=== PATIENT | female | born 1960 | race Caucasian/White ===

== ENCOUNTER 2022-11-16 14:30 | Day surgery (SDC) | payer OTHER, SELFPAY ==
[2022-11-16] VITALS (7 sets, daily range): BP systolic 93–132; BP diastolic 63–82; PULSE 70–103; RESP 12–24; TEMP 36.2–37; O2SAT 98–99; BMI 22.6
--- NOTE | 2022-11-16 15:03 | PM.HP.1 ---
History of Present Illness History of Present Illness Date Patient Seen: 11/16/22 Time Patient Seen: 15:03 Chief complaint: Screening Colonoscopy Narrative: Here for colon cancer screening. Reports a negative colonoscopy 10-,1/2 years ago. Meds Home Medications and Allergies Allergies Allergy/AdvReac Type Severity Reaction Status Date / Time No Known Drug Allergies Allergy Verified 11/16/22 14:56 Review of Systems Review of Systems ROS: Yes All systems reviewed with the patient and are negative except as otherwise documented Exam Const General: cooperative HENMT Head: normal to inspection Eyes General: appearance normal, both eyes and all related structures Neck Neck: normal visual inspection Chest Chest: normal inspection of the chest Resp Effort & Inspection: normal respiratory effort Cardio Rate: regular rate GI Inspection: normal to inspection Skin General: no rashes or lesions noted Neuro General: patient alert and patient awake Extrem General: normal to inspection and no pedal edema Psych Appearance: grossly normal Assessment & Plan Assessment & Plan narrative: 62-year-old female here for colon cancer screening. Colonoscopy is pursued today.
--- NOTE | 2022-11-16 15:04 | PM.PREOP ---
Pre-operative Note Interval Note History & Physical reviewed/Exam performed by Physician: Yes Changes to H&P: No ASA Class (for procedural sedation): I
[2022-11-16] MEDS: LACTATED RINGERS 1,000 ML 42 ML IV (15:32)
--- NOTE | 2022-11-16 15:39 | PM.OP.COLON ---
Operative Date/Time/Diagnoses Date of procedure: 11/16/22 Time of procedure: 15:39 Pre-op diagnosis: Colon cancer screening Post-op diagnosis: same Procedure & Clinicians Study performed: Colonoscopy Same procedure as scheduled: Yes Indications: Colon cancer screening Surgeon: David Og Procedure Notes SCOAP/Timeout: Done Procedure in detail: After the risks and benefits were explained, written and verbal informed consent was obtained. The patient was brought into the procedure room and placed into the left lateral decubitus position. Please see anesthesia notes for sedation details. Digital rectal examination was accomplished. The scope was introduced into the patient and advanced under direct visualization to the cecum as identified by the appendiceal orifice and ileocecal valve. The scope was slowly withdrawn to carefully examine the mucosa for any defects or lesions. Comprehensive imaging was accomplished throughout the rectum including the dentate line. The colon was decompressed, the scope was then removed from the patient who tolerated the procedure well. Pediatric colonoscope Bowel prep adequate Scope withdrawal time: 6 minutes Sedation minutes: 16 Specimen(s): none sent Complications: none Impression: The patient had a fairly tortuous sigmoid colon. No significant polyps mass lesions or inflammatory features identified throughout. The patient had evidence of grade 3 to grade 4 nonthrombosed nonbleeding hemorrhoids. Endoscopic diagnosis 1. Grade 3-4 hemorrhoids 2. Otherwise visually normal-appearing colonoscopy Post-procedure Plan for aftercare: Repeat colonoscopy 10 years; sooner should symptoms warrant an earlier exam. Disposition: PACU
== END 2022-11-16 17:05 | disposition home or self-care (01) ==
PROVIDERS: PCP Nurse Practitioner Family; Referring Provider Internal Medicine Gastroenterology; Visit Provider Internal Medicine Gastroenterology
PROC: 0DJD8ZZ Inspection of Lower Intestinal Tract, Via Natural or Artificial Opening Endoscopic (ICD-10-PCS; CPT 45378; principal; 2022-11-16 15:30)
DX: Z12.11 Encounter for screening for malignant neoplasm of colon (principal); K64.2 Third degree hemorrhoids
CPT/HCPCS: 45378; J2704

== ENCOUNTER → 2023-02-08 07:50 | Outpatient (CLI) | payer OTHER, SELFPAY ==
--- NOTE | 2023-02-08 07:50 | DI.RAD.S_ITS ---
PROCEDURE: XR CERVICAL SPINE 4V OR 5V INDICATIONS: NECK PAIN TECHNIQUE: 5 views of the cervical spine acquired. COMPARISON: None. FINDINGS: Bones: No fractures or dislocations to the C7 level. Moderate to severe foraminal stenosis at the right side C4-5 and C6-7. Mild to moderate neural foraminal narrowing at the left side of C5-6. Grade 1 anterolisthesis of C4 on C5 and C7 on T1. Diffuse facet arthrosis, most prominent at C4-5 and C5-6. Soft tissues: No prevertebral soft tissue swelling. IMPRESSION: Multilevel degenerative disc disease and facet arthrosis, resulting in moderate to severe neural foraminal stenosis on the right side of C4-5 and C6-7. Dictated by: Gerard Helms M.D. on 02/08/2023 at 8:31 Approved by: Gerard Helms M.D. on 02/08/2023 at 8:34
== END ==
PROVIDERS: PCP Nurse Practitioner Family; Referring Provider Physical Medicine & Rehabilitation; Visit Provider Physical Medicine & Rehabilitation
DX: M48.02 Spinal stenosis, cervical region (principal)
CPT/HCPCS: 72050

== ENCOUNTER → 2023-08-11 12:55 | Outpatient (CLI) | payer OTHER, SELFPAY ==
--- NOTE | 2023-08-11 12:57 | DI.MRI.S_ITS ---
BREAST MRI OF BOTH BREASTS: 08/11/2023 CLINICAL: Fibroglandular density. PROCEDURE: MR BREAST BI WO/W CON INDICATIONS: Fibroglandular density, bilateral breasts TECHNIQUE: The patient was placed prone in a dedicated breast imaging coil. Precontrast axial STIR and 3D FLASH without fat saturation sequences were obtained. Both before and after bolus injection of contrast, sequential 1-minute axial 3D FLASH with fat saturation sequences for 3 time points, with subtraction images and maximum intensity projections (MIP's) generated. Delayed sagittal FLASH images with fat saturation were also obtained. Computer-aided detection, including computer algorithm analysis of MRI image data for lesion detection and characterization, pharmacokinetic analysis, with further physician review for interpretation, was performed. COMPARISON: None. FINDINGS: Image quality: Excellent. There is minimal background parenchymal enhancement. Right breast: No suspicious enhancement or mass lesions. Left breast: There is a circumscribed 0.5 x 0.6 x 0.5 cm enhancing mass within the left breast at 3 o'clock at a middle depth, 4.6 cm from the nipple (series 6/image 72 and series 19/image 85). No other suspicious mass lesions or abnormal enhancement within the left breast. This mass is T2 hyperintense and demonstrates a small internal septation. Miscellaneous: No axillary or intramammary adenopathy. Limited visualization of the upper abdomen, heart, and lungs are unremarkable. IMPRESSION: INCOMPLETE: NEEDS ADDITIONAL IMAGING EVALUATION 1. Enhancing mass within the left breast as above. Imaging characteristics suggest the presence of a small fibroadenoma. Second-look ultrasound is recommended to further characterize this finding and exclude neoplasm. Electronically Signed By: Cheryle grier/:08/11/2023 16:47:20 letter sent: Additional Imaging Needed ACR BI-RADS Category 0: Incomplete [id number]
== END ==
PROVIDERS: PCP Nurse Practitioner Family; Referring Provider Nurse Practitioner Family; Visit Provider Nurse Practitioner Family
DX: N63.25 Unspecified lump in the left breast, overlapping quadrants (principal); R92.323 Mammographic fibroglandular density, bilateral breasts; N64.4 Mastodynia; Z12.39 Encounter for other screening for malignant neoplasm of breast; Z78.0 Asymptomatic menopausal state
CPT/HCPCS: 77049; A9579

== ENCOUNTER → 2023-08-19 14:17 | Outpatient (CLI) | payer OTHER, SELFPAY ==
--- NOTE | 2023-08-19 | DI.US.S_ITS ---
LIMITED ULTRASOUND OF LEFT BREAST: 08/19/2023 CLINICAL: Patient returns today to evaluate a focal asymmetry in the left breast. Comparison is made to exams dated: 08/11/2023 breast MRI - [facility], 06/01/2023 ultrasound, 06/01/2023 mammogram, 06/23/2022 mammogram, and 08/04/2021 mammogram - [facility]. Color flow ultrasound of the left breast 3 o'clock region was performed. North scale images of the real-time examination were reviewed. There is a benign 0.8 cm x 0.3 cm x 0.3 cm oval normal intramammary lymph node with a circumscribed margin in the left breast at 3 o'clock posterior depth 5 cm from the nipple. This oval normal intramammary lymph node displays fatty hilum. This correlates with breast MRI findings. IMPRESSION: BENIGN There is no sonographic evidence of malignancy. The 0.8 cm x 0.3 cm x 0.3 cm oval normal intramammary lymph node in the left breast is benign. Return to annual mammogram screening schedule is recommended. This exam was interpreted at Station ID: [id number]. Electronically Signed By: Jeb bolaños/fina:08/19/2023 15:58:28 letter sent: Normal Exam Ultrasound BI-RADS: 2 Benign
== END ==
LOC: US 14:17
PROVIDERS: PCP Nurse Practitioner Family; Referring Provider Nurse Practitioner Family; Visit Provider Nurse Practitioner Family
DX: R92.8 Other abnormal and inconclusive findings on diagnostic imaging of breast (principal)
CPT/HCPCS: 76642

== ENCOUNTER 2024-06-27 08:50 | Outpatient (CLI) | payer OTHER, SELFPAY ==
[2024-06-27] VITALS (10 sets, daily range): BP systolic 112–136; BP diastolic 70–97; PULSE 19–96; RESP 12–19; TEMP 35.9; O2SAT 97–100
--- NOTE | 2024-06-27 08:51 | DI.RAD.S_ITS ---
PROCEDURE: PAIN C/T INTERLAMINAR INJECT INDICATIONS: C6/7 TL HANNAH COMPARISON: None. FINDINGS: Fluoroscopic spot filming was performed to verify placement of spinal needles at the C6-C7 level(s), as labeled on the films. Appropriate location(s) of the needle tip(s) was confirmed by injection of iodinated contrast. IMPRESSION: Intraoperative guidance provided. Dictated by: Fidencio Brewer M.D. on 06/27/2024 at 23:37 Approved by: Fidencio Brewer M.D. on 06/27/2024 at 23:38
[2024-06-27] MEDS: MIDAZOLAM 2 MG/2 ML VIAL IV (10:44)
[2024-06-27] MEDS: BUPIVACAINE 0.25% (PF) VIAL 2 ML INJ (10:49)
[2024-06-27] MEDS: DEXAMETHASONE 10 MG/ML VIAL 20 MG INJ (10:49)
[2024-06-27] MEDS: iopamidoL 15 ML VIAL 3 ML INJ (10:50)
[2024-06-27] MEDS: MIDAZOLAM 2 MG/2 ML VIAL 1 MG IV (10:52)
--- NOTE | 2024-06-27 11:09 | PM.PROC.IR.1 ---
Date/Time/Diagnoses Date of procedure: 06/27/24 Time of procedure: 11:09 Pre-procedure diagnosis: 1. CERVICAL STENOSIS, 2. CERVICAL HNP WITH UPPER EXTREMITY RADICULAR FEATURES Post-procedure diagnosis: same Procedure Notes Procedure: 1. FLUORSCOPICALLY GUIDED CONTRAST CONTROLLED INTERLAMINAR EPIDURAL STEROID INJECTION - C6/7 TL HANNAH Indications: Anna is referred by MAGED Yoo for treatment of Cervical HNP with Upper Extremity Paresthesias. Physician: Iraj Romero Total Fluoroscopy time (seconds): 36 Total sedation minutes: 20 Complications: none Procedure in detail & Post-procedure care: FINDINGS Cervical Stenosis due to disc deterioration and nerve root irritation and nerve root irritation DESCRIPTION OF PROCEDURE Fluoroscopically guided, contrast-controlled C6/7 translaminar epidural steroid injection with conscious sedation. Following review of allergy and review of potential side effects and complications, including, but not necessarily limited to, infection, allergic reaction, local tissue breakdown, temporary as well as permanent nerve injury, stroke, paralysis, and possible , the patient indicated that patient understood and agreed to proceed. An informed consent document was signed by the patient, witnessed by a nurse, and placed in the patient's chart. Additionally, other treatment options including modalities, medications, and physical therapy were reviewed with the patient. After review of previous anaesthesic history and IV conscious sedation the patient was deemed safe to proceed with today?s procedure with IV conscious sedation as ASA class II designation. Safety time-out was performed to confirm patient ID, procedure to be performed and site of procedure. IV sedation was accomplished with a combination of 3mg of Versed administered by the RN after DO order, titrated to patient comfort during the course of the procedure while the patient remained responsive to all verbal commands. In the prone position, following sterile prep and drape of the cervical region, the C6/7 translaminar space was identified fluoroscopically. The skin was anesthetized via a 25-gauge 1.5-inch needle with 1% lidocaine solution. At this point, a 25-gauge, 2.5-inch short bevel spinal needle was atraumatically introduced and advanced under fluoroscopic guidance into epidural space at the C6/7 translaminar space. Depth was confirmed on lateral view. Radiological data, including multiple fluoroscopic views of the cervical spine, reveal a spinal needle at the C6/7 translaminar space. Lateral views then show placement of the needle in the epidural space. Subsequent views show contrast material flowing superiorly and inferiorly in the epidural space. DSA fluoroscopy with live contrast injection, once again, confirmed no vascular or intrathecal uptake. At this point, using loss of resistance technique with saline and air, the epidural space was entered. Following negative aspiration, injection of approximately 1.5 cc of [id number]-[id number] with live fluoroscopy in the AP view confirmed epidural flow in the epidural space without vascular or intrathecal uptake observed. Subsequently, a test dose of 1 cc of 1% lidocaine solution was injected and patient was observed for two minutes without signs or symptoms of complications, including abdominal pain, shortness of breath, bilateral upper or lower extremity weakness, nausea and vomiting, prior to steroid injection. At this point, 2cc or 20mg of dexamethasone was then injected without incident. The patient tolerated the procedure well without signs or symptoms of complications prior to being transferred to the recovery area for further monitoring, The patient was then transferred to the recovery area where they were observed for an appropriate period of time after the injection. The patient reported a VAS score of 6 prior to the procedure and a post-procedure VAS of 0. POST OP INSTRUCTIONS The patient was provided a Pain Log to continue to record their response to the target-specific procedure prior to follow-up visit with the referring provider. Additionally, specific post-injection care instructions and a contact number to our office were provided if concerns arise regarding possible complications associated with the procedure are suspected.
== END 2024-06-27 11:40 | disposition home or self-care (01) ==
PROVIDERS: PCP Nurse Practitioner Family; Referring Provider Physical Medicine & Rehabilitation; Visit Provider Physical Medicine & Rehabilitation
DX: M48.02 Spinal stenosis, cervical region (principal); M50.123 Cervical disc disorder at C6-C7 level with radiculopathy
CPT/HCPCS: 62321; 99152; J1100; J2250; J3490